=== PATIENT | female | born 1955 | race Caucasian/White ===

== ENCOUNTER 2018-08-03 19:30 | Emergency (ER) | payer OTHER ==
[~2018-08-03] VITALS: Ht 167.6 cm; Wt 55.8 kg
[2018-08-03 19:35] VITALS: Ht 167.6 cm; Wt 55.8 kg
[2018-08-03 20:41] VITALS: BP 138/72
== END 2018-08-03 20:41 | disposition home or self-care (01) ==
LOC: ED 19:30
DX: S91.331A Puncture wound without foreign body, right foot, initial encounter (principal); S91.131A Puncture wound without foreign body of right great toe without damage to nail, initial encounter; S91.134A Puncture wound without foreign body of right lesser toe(s) without damage to nail, initial encounter; Z88.8 Allergy status to other drugs, medicaments and biological substances; W55.01XA Bitten by cat, initial encounter; Y93.89 Activity, other specified; Y92.89 Other specified places as the place of occurrence of the external cause; Y99.8 Other external cause status
CPT/HCPCS: 90715; J1885; J3490

== ENCOUNTER 2018-11-05 22:14 | Emergency (ER) | payer OTHER ==
[~2018-11-05] VITALS: Ht 167.6 cm; Wt 55.8 kg
[2018-11-05 22:22] VITALS: Ht 167.6 cm; Wt 55.8 kg
[2018-11-05 23:31] VITALS: BP 110/74
== END 2018-11-05 23:32 | disposition home or self-care (01) ==
LOC: ED 22:14
DX: S51.851A Open bite of right forearm, initial encounter (principal); F20.9 Schizophrenia, unspecified; Z90.710 Acquired absence of both cervix and uterus; W55.01XA Bitten by cat, initial encounter; Y93.89 Activity, other specified; Y92.89 Other specified places as the place of occurrence of the external cause; Y99.8 Other external cause status